=== PATIENT | female | born 1985 | race Caucasian/White ===

== ENCOUNTER → 2017-04-19 | Outpatient (CLI) | payer OTHER ==
--- NOTE | 2017-04-19 11:08 | RAD ---
DATE: 04/19/2017 EXAM: MAMMO DONNA VANESSA BILAT HISTORY: Right breast lump COMPARISON: None available This study was interpreted with the benefit of Computerized Aided Detection (CAD). The breast parenchyma is heterogeneously dense, which could reduce sensitivity of mammography. Breast parenchyma level C. FINDINGS: 2-D and 3-D tomosynthesis imaging was performed in CC and MLO projections. No breast mass is identified. No suspicious microcalcifications are seen. IMPRESSION: 1. There is no mammographic evidence of malignancy in either breast. 2. Further clinical surveillance of the area of palpable concern is suggested. BI-RADS CATEGORY: 1 NEGATIVE RECOMMENDED FOLLOW-UP: CLIN FOLLOW UP IMAGING CLINICALLY INDICATED PQRS compliance statement: Patient information was entered into a reminder system with a target due date for the next mammogram. Mammography is a sensitive method for finding small breast cancers, but it does not detect them all and is not a substitute for careful clinical examination. A negative mammogram does not negate a clinically suspicious finding and should not result in delay in biopsying a clinically suspicious abnormality. "Our facility is accredited by the [employer] Mammography Program."
--- NOTE | 2017-04-19 11:09 | RAD ---
Right breast ultrasound, 04/19/2017: History: Breast lump A targeted ultrasound exam was performed in the area of reported palpable concern at the 12:00 location in the right breast. Heterogeneous fibroglandular shadows are present. No discrete breast mass is seen. IMPRESSION: 1. The targeted right breast ultrasound reveals no abnormality. 2. Mammography will be performed and reported separately.
== END | disposition home or self-care (01) ==
LOC: US 09:47
PROVIDERS: ATTEND Nurse Practitioner
DX: N63.10 Unspecified lump in the right breast, unspecified quadrant (principal)
CPT/HCPCS: 76641; G0204; G0279; 77062; 77066